=== PATIENT | male | born 1950 | race Two or more races ===

== ENCOUNTER 2016-08-11 18:39 | Emergency (ER) | payer MEDICAID ==
[~2016-08-11] VITALS: Ht 167.6 cm; Wt 97.1 kg
[~2016-08-11 18:39] MED LIST: ATORVASTATIN CA20 MG ORAL
[2016-08-11 19:21] LABS: TROPONIN I < 0.30 ng/mL (<=0.30)
[2016-08-11 19:25] LABS: ALANINE AMINOTRANSFERASE 76 U/L (3-41); ALBUMIN/GLOBULIN RATIO 1.3 (1.0-2.7); ANION GAP 15 (5-15); ASPARTATE AMINO TRANSFERASE 134 U/L (5-40); CALCIUM 8.5 mg/dL (8.6-10.2); CARBON DIOXIDE 25 mEQ/L (20-30); CHLORIDE 100 mEQ/L (98-107); CREATININE 1.1 mg/dL (0.7-1.2); GLOMERULAR FILTRATION RATE > 60 mL/min (>60); HEMOLYSIS 3; LIPASE 24 U/L (< 60); POTASSIUM 3.7 mEQ/L (3.4-4.9); SODIUM 140 mEQ/L (135-145); TOTAL PROTEIN 6.7 g/dL (6.6-8.7)
[2016-08-11 19:28] LABS: BASOPHILS % (AUTO) 0.6 % (0.0-2.0); EOSINOPHILS % (AUTO) 1.5 % (0.0-3.0); LYMPHOCYTES % (AUTO) 26.9 % (20.0-45.0); MEAN CORPUSCULAR HEMOGLOBIN 28.5 PG (27.0-31.0); MEAN CORPUSCULAR VOLUME 86 FL (80-99); MEAN PLATELET VOLUME 8.5 FL (6.5-10.1); MONOCYTES % (AUTO) 9.1 % (1.0-10.0); NEUTROPHILS % (AUTO) 61.8 % (45.0-75.0); PLATELET COUNT 178 K/UL (150-450); RED CELL DISTRIBUTION WIDTH 13.1 % (11.6-14.8); WHITE BLOOD COUNT 7.7 K/UL (4.8-10.8)
[2016-08-11] MEDS ORDERED: fentaNYL 100 mcg/2 mL IV ONE (19:30)
--- NOTE | 2016-08-11 19:34 | Emergency Room Report ---
History of Present Illness General Chief Complaint: Abdominal Pain Source: Patient, EMS Present Illness HPI 66YOM BIBEMS for severe central/right sided abd pain for 4 hours. No nausea/ vomiting, diarrhea, fever/chills, chest pain, SOB. No previous Abd surgery History of HTN, HLD, takes meds Allergies: Coded Allergies: No Known Allergies (Unverified , 08/11/16) Patient History Past Medical History: HTN, other - HLD Past Surgical History: none Pertinent Family History: none Social History: Denies: alcohol use, drug use, smoking Immunizations: UTD Reviewed Nursing Documentation: PMH: Agreed, PSxH: Agreed Nursing Documentation-PMH Past Medical History: No History, Except For Hx Hypertension: Yes Review of Systems All Other Systems: negative except mentioned in HPI Physical Exam Vital Signs Date Time Temp Pulse Resp B/P Pulse Ox O2 Delivery O2 Flow Rate FiO2 08/11/16 18:36 98.2 86 16 136/84 98 Room Air Sp02 EP Interpretation: reviewed, normal General Appearance: normal inspection, well appearing, no apparent distress, alert, GCS 15, non-toxic, obese Head: normocephalic, atraumatic Eyes: bilateral eye EOMI, bilateral eye PERRL ENT: normal ENT inspection, hearing grossly normal, normal voice Neck: normal inspection, full range of motion, supple, no bony tend Respiratory: normal inspection, lungs clear, normal breath sounds, no respiratory distress, no retraction, no wheezing Cardiovascular #1: regular rate, rhythm, no edema Gastrointestinal: normal inspection, normal bowel sounds, non tender, soft, no guarding, no hernia, other - Obese, protuberant abd. No scars. No peritonitis Genitourinary: no CVA tenderness Musculoskeletal: normal inspection, back normal, normal range of motion, Julee' s Sign negative Neurologic: normal inspection, alert, oriented x3, responsive, customer order clerk III-XII nml as tested, motor strength/tone normal, speech normal Psychiatric: normal inspection, judgement/insight normal, mood/affect normal Skin: normal inspection, normal color, no rash Medical Decision Making Diagnostic Impression: Primary Impression: Abdominal pain Qualified Codes: R10.11 - Right upper quadrant pain Additional Impression: UTI (urinary tract infection) Qualified Codes: N30.01 - Acute cystitis with hematuria ER Course Abd pain for 4 hours -VSS. Afebrile. - Focal RUQ, epigastric ttp - Labs: No leuks. H&H stable. Mild AST/ALT elevation. Bili normal. UA with some bacteria - CTAP: small fat-containing umbilical hernia. +albert. No cholecystitis. No SBO or Appy. - ?multifactorial given UTI, mild LFTs abnormal. ?viral gastroenteritis - Pateint's pain resolved. Feels much better - Denies ETOH - Exam now serially non-tender. - Abx for UTI DC home EKG Diagnostic Results Rate: normal Rhythm: NSR ST Segments: no acute changes ASA given to the pt in ED: No Last Vital Signs Date Time Temp Pulse Resp B/P Pulse Ox O2 Delivery O2 Flow Rate FiO2 08/11/16 18:36 98.2 86 16 136/84 98 Room Air Status: improved Disposition: HOME, SELF-CARE Scripts Nitrofurantoin Monohyd/M-Cryst* (MACROBID 100 MG*) 100 Mg Capsule 100 MG ORAL EVERY 12 HOURS for 7 Days, #14 CAP Prov: LEANDRO VARELA M.D. 08/11/16 LEANDRO VARELA M.D. Aug 11, 2016 19:33
[2016-08-11 19:35] VITALS: BP 169/78
[2016-08-11 19:39] LABS: APPEARANCE,URINE CLEAR; KETONES,URINE NEGATIVE (NEGATIVE); LEUKOCYTE ESTERASE ,URINE 1+ (NEGATIVE); NITRITE,URINE NEGATIVE (NEGATIVE); PH,URINE 6.5 (4.5-8.0); PROTEIN,URINE 2+ (NEGATIVE); UROBILINOGEN,URINE 8 MG/DL (0.0-1.0)
[2016-08-11 19:49] LABS: BACTERIA,URINE FEW /HPF; RBC,URINE 0-2 /HPF (0 - 0)
[2016-08-11 19:50] LABS: AMORPHOUS SEDIMENT,UR FEW /LPF; CALCIUM OXALATE CRYSTALS,UR FEW /LPF
[2016-08-11 19:58] LABS: ICTOTEST NEGATIVE
[2016-08-11] MEDS ORDERED: NITROFURANTOIN100 M2 ORAL (21:17)
[2016-08-11 21:33] VITALS: BP 155/80
--- NOTE | 2016-08-12 08:41 | Diagnostic Imaging Report ---
Clinical Indication: Abdominal pain Technique: No oral contrast utilized, per emergency room physician request IV administration nonionic contrast. Venous phase spiral acquisition obtained through the abdomen and pelvis. Multiplanar reconstructions were generated. Total dose length product 1087 mGycm. CTDIvol(s) 19 mGy. Dose reduction achieved using automated exposure control Comparison: None Findings: Normal appendix. No evidence of diverticulosis or diverticulitis. Distal esophagus, stomach, duodenum are unremarkable. Short segment of proximal to mid small bowel is mildly dilated, demonstrates fecalization of contents. There is gradual transition to normal caliber is seen at both of this segment. No free or loculated intraperitoneal air or fluid. The gallbladder contains one or more gallstones. The liver, bile ducts, pancreas, spleen, adrenals are unremarkable. The kidneys demonstrate bilateral subcentimeter low-attenuation lesions which are too small to characterize. No retroperitoneal mesenteric mass or adenopathy. No pelvic mass or adenopathy. The included lung bases are clear. The bones are except for degenerative changes of the lower lumbar spine and a small bone island within the left femoral intertrochanteric region. Impression: Single short mildly dilated segment of proximal to the small bowel, demonstrating fecalization of contents suggesting stasis. No definite abrupt transition to suggest obstruction as etiology of this; suspect on the basis of dysmotility No acute process otherwise Cholelithiasis Bilateral subcentimeter low-attenuation lesions, too small to characterize, most likely benign simple cortical cysts. No further followup necessary Degenerative spondylosis The CT scanner at [facility] is accredited by the [employer] and the scans are performed using protocols designed to limit radiation exposure to as low as reasonably achievable to attain images of sufficient resolution adequate for diagnostic evaluation.
--- NOTE | 2016-08-12 18:44 | Cardiology Report ---
APPROVED REPORT EKG Measurement Heart [id number] Normal sinus rhythm Normal ECG
== END 2016-08-11 21:33 | disposition home or self-care (01) ==
LOC: EDBD 18:39 → EMR 19:13
DX: R10.11 Right upper quadrant pain (principal); N39.0 Urinary tract infection, site not specified; I10 Essential (primary) hypertension; E78.5 Hyperlipidemia, unspecified; K80.20 Calculus of gallbladder without cholecystitis without obstruction; M47.816 Spondylosis without myelopathy or radiculopathy, lumbar region
CPT/HCPCS: 36415; 74177; 80053; 81003; 83690; 84484; 85025; 93005; 96374; 96375; 99284; J2405; J3010; Q9967